=== PATIENT | male | born 1960 | race Caucasian/White ===

== ENCOUNTER 2024-07-09 10:03 | Day surgery (SDC) | payer OTHER, SELFPAY ==
[2024-07-09] VITALS (15 sets, daily range): BP systolic 101–136; BP diastolic 64–100; BMI 25.9
--- NOTE | 2024-07-09 10:49 | HP.FOC2 ---
Focused History & Physical
Chief Complaint
HPI:
PCP: Cuco Grimaldo MD
CDY: Anil Mcclain DO
Chief Complaint: Dilated Non Ischemic Cardiomyopathy, Class II HF symptoms
HPI / Indication for Planned Procedure:
64 y/o, PMH sig for dilated, non ischemic cardiomyopathy, chronic systolic HFrEF 24%, ETOH abuse, multiple lacunar infarcts.
On max tolerated GDMT with persistently low EF, with class II HF symptoms.
Presents for BI-V ICD Implant.
Relevant Past Medical History: Hypertension (labile BP) and Other (Anxiety/Depression, Gout, low testosterone)
Relevant Social History: ETOH (daily ETOH)
Review of Systems
Review of Pertinent Systems: All Systems Negative Except for the Following Positives (DONAHUE, palpitations, fatigue)
Medication
See Medication form for detailed medications: Yes
Medication List (including Herbals & OTC):
Home Medications
�Medication �Instructions �Recorded
allopurinol 100 mg tablet 150 mg PO DAILY Gout 07/09/24
aspirin 81 mg tablet 81 mg PO DAILY BLOOD THINNER 07/09/24
carvedilol 3.125 mg tablet 3.125 mg PO BID BP 07/09/24
formoterol fumarate 20 mcg/2 mL 20 mcg inhalation DAILY GERD 07/09/24
solution for nebulization
sertraline 50 mg tablet 50 mg PO DAILY 07/09/24
spironolactone 25 mg tablet 12.5 mg PO DAILY WATER 07/09/24
testosterone cypionate 50 mg/mL See Rx Instructions .Route 07/09/24
intramuscular oil .COMPLEX LOW HORMONE LEVEL
valsartan 80 mg capsule 80 mg PO DAILY BP 07/09/24
Medications Reviewed: Yes
Allergies and Reactions
Patient has Allergies: No
Noted Allergies and Reactions:
Allergy/AdvReac Type Severity Reaction Status Date / Time
No Known Allergies Allergy Unverified 07/08/24 16:09
Pertinent Physical Exam
All Other Systems: Negative
Head/Neck: Normal
Lungs: Other (decreased bibasilar with scattered rhonchi left base, clears with cough)
Heart: Normal
Abdomen: Normal
Extremities: Normal
Neurological: Normal
Diagnosis / Assessment
Dilated NICM
Chronic systolic HFrEF, 24%
Labile BP
Multiple lacunar infarcts
Anxiety/depression
Gout
Low testosterone
Plan / Procedure
NICM/chronic systolic HFrEF
Bi-V ICD today
continue gdmt as tolerated
cxr post procedure
incision check 1 week at [facility]
follow with Dr. Mcclain thereafter
Anesthesia/Sedation to be done by Anesthesia Provider: Yes
--- NOTE | 2024-07-09 10:57 | W.ICD.CONTRA ---
Post ICD/ASSOCIATE DIRECTOR FINANCE-D
-
History of ND?: No
LV Function
Left ventricular function study result?: Ejection Fraction </= 35%
ACEI/ARB/ARNI
Patient already on ACEI/ARB/ARNI: Yes
Beta-Rahul
Patient already on Beta Rahul: Yes
--- NOTE | 2024-07-09 14:54 | ITS.CL.ICD ---
Tipple Worker - ICD
Implantable Cardioverter Defibrillator
Procedure Report:
Date of Procedure: July 09, 2024
Patient : 1960
Procedures: BiV ICD implantation
Indication: 1) Class III CHF, LVEF 15%, 2) left bundle Branch Block, QRS 126-130 ms for [employer] and primary prevention ICD implantation on guideline based medical therapy greater than 3 months time without improvement of ejection fraction
�
Implants:
Pulse Generator: Showpitch; Model# CD HFA 500 Q; Serial# [id number]
Atrial Lead: Joiner: Model# 1944; Serial# [id number]
Right Ventricular Lead: Showpitch; Model# LDA 2 10Q; Serial# [id number]
Left Ventricular Lead: TrackMaven; Model# 4798 serial# [id number]
�
Technique: The patient was prepped and draped in the usual fashion. Local anesthetic was applied to the left prepectoral subcutaneous tissue. A 4 inch incision was made. The left axillary vein was accessed��without difficulty. A subcutaneous pocket
was CREATED. Hemostasis was excellent. The leads were introduced with hemostatic peel away introducer sheaths. The right ventricular lead was placed at the right ventricular apical septum. The atrial lead was placed in the right atrial appendage.
The coronary sinus was accessed with the aid of the Attain system. The left ventricular lead was placed in the high lateral branch with an active-fixation lead utilizing the distal and mid poles and LV only pacing. 10 volt pacing did not capture
the diaphragm. The leads were secured to the pectoralis muscle and fascia. The leads were appropriately attached to the device. The pocket was irrigated with antibiotic solution. The device and leads were placed in the pocket and the device was
secured to pectoralis muscle and facia. The incision was closed with absorbable sutures. The estimated blood loss was minimal. There were no complications. Device based testing was performed as described below. IV contrast total: 15 cc.
Fluoroscopy: 8.9 minutes of pulse fluoroscopy 78 mGy
System Analysis:
RA lead: P: 3.8 mV; Threshold: 0.75 V @ 0.5 ms; Impedance: 560 ohms.
RV lead: R: 6 mV; Threshold: 0.6 V @ 0.5 ms; Impedance: 540 ohms.
LV lead: R: 6 mV; Threshold: 2.0 V @ 0.5 ms and LV 1-2; Impedance: 590 ohms.
�
Final Programming: Tachy: VT/VF:188; Robinson: DDDR 60-120.
�
Conclusion: Uncomplicated Biventricular ICD implant
�
Recommendation: Routine post BiV ICD care.
�
cc: Dr. Adams Mcclain
�
--- NOTE | 2024-07-09 16:55 | CM ---
Reviewed chart. Mr. Moore was off the floor for a Chest Xray. Met with Mrs. Moore to review discharge plans. She states prior to admission he resides with his spouse and daughter in a two story home with three steps to enter. He has a first
floor set-up. Prior to admission he was independent with ambulation and adls. He does not have any DME in the home. He states he has a prescription plan and uses [facility]. The discharge plan is to return home with his spouse and daughter
when medically stable.
--- NOTE | 2024-07-09 17:20 | PTCARENOTE ---
Patient received from recovery at 1627; Surgical site assessed with stripe matcher, left upper chest aquacell clean/dry/intact, no ecchymosis noted, surrounding area soft to palpation, no hematoma noted; LUE immobilizer sling in place; Bilateral radial
pulses +2 to palpation; Bilateral DP pulses +2 to palpation; Normal sinus rhythm and periods of ventricular pacing noted on potline monitor; Patient 97-98% on room air; Denies pain, nausea, and vomiting at this time; Patient alert to self, place
and time; Call das within reach; Bed in lowest position, wheels locked; Assessment and plan of care ongoing
[2024-07-09] MEDS: ANCEF 5 IV (20:00)
[2024-07-09] MEDS: COREG 3.125 MG PO (20:00)
[2024-07-09] MEDS: TYLENOL 650 MG PO (21:14)
--- NOTE | 2024-07-09 23:14 | PTCARENOTE ---
Rec'd pt at change of shift. Pt AAO*3 and on TELE monitor in Vpaced rhythm. Pt with LOCO chest wall dressing CDI. Pt reported some discomfort at site. Tylenol given per order (see mar for full assessment details). Pt aware of LUE restrictions and
L arm immobilizer on. Pt educated on medications and verbalized understanding. Pt pointed to backpack on counter in room and explained 'all the medications I take are in there.' RN inventoried medications and sent down items to pharmacy per
protocol. Pt resting with call das in reach. Plan of care ongoing.
[2024-07-10] MEDS: ANCEF 5 IV (04:23)
[2024-07-10 04:27] VITALS: BP 123/81
[2024-07-10 04:48] VITALS: BMI 25.1
[2024-07-10 05:38] LABS: Hematocrit 36.3 % (39.0-52.0); Hemoglobin 12.1 g/dL (13.0-18.0); Mean Corp Hgb Conc. 33.3 g/dL (33.0-37.0); Mean Corpuscular Hgb 31.6 pg (27.0-31.0); Mean Corpuscular Volume 94.8 fL (80.0-94.0); Mean Platelet Volume 9.5 fL (7.4-10.4); Platelet Count 207 10^3/uL (130-400); Red Blood Cell Count 3.83 10^6/uL (4.70-6.10); Red Cell Dist. Width 11.9 % (11.5-14.5); White Blood Cell Count 9.8 10^3/uL (4.8-10.8)
[2024-07-10 05:58] LABS: Blood Urea Nitrogen 16 mg/dl (9-20); Calcium 9.3 mg/dl (8.4-10.2); Carbon Dioxide 20 mmol/L (22-30); Chloride 105 mmol/L (98-107); Estimated Creatinine Clearance 70 ml/min; Glucose 88 mg/dl (70-99); Magnesium 2.1 mg/dl (1.6-2.3); Potassium 4.6 mmol/L (3.5-5.1); Sodium 138 mmol/L (135-145); eGFR > 60.00
--- NOTE | 2024-07-10 07:13 | W.PN.CARDCBS ---
Addendum entered and electronically signed by Forest Reyna DO 07/10/24 10:08:
I saw and examined the patient.
The Continuous Improvement Lead's note was reviewed and I agree with the note.
Comment:
Plan:
Reviewed procedure with pt for ICD
Stable cv status.
Stable for d/c
Follow up arranged
Original Note:
Today's Communication / Plan
-
Ok for discharge
Follow up arranged
Impression / Plan
-
PCP: Dr. Grimaldo
Facility Rehab Director: Dr. Mcclain ([facility] Cardiology)
Impression:
Dilated NICM (EF 24%)
s/p Joiner BiV ICD 07/09/2024
HFrEF
h/o multiple lacunar infarcts
anxiety
Gout
Plan:
-He has known CM with EF 24% on maximally tolerated GDMT. Underwent BiV ICD 07/09/2024.
-No overnight issues noted. Does have some soreness over device site. No significant bruising or swelling.
-EKG this AM a sensed v paced. No arrhythmias noted on review of tele.
-Reviewed arm restrictions.
-BP stable, continue coreg 3.125 mg BID, spironolactone 12.5mg daily, and valsartan 80mg daily.
-Continue aspirin 81mg daily
-Wound check appt arranged at [facility] office.
-Follow up with Dr. Mcclain also arranged
-Ok for discharge
Progress Note - Facility Rehab Director
Subjective
Date of Service: July 10, 2024
No complaints this AM. Does have some soreness over device.
Objective
Labs:
07/10/24 04:35
07/10/24 04:35
Labs
Hgb 12.1 g/dL (13.0-18.0) L 07/10/24 04:35
Hct 36.3 % (39.0-52.0) L 07/10/24 04:35
Plt Count 207 10^3/uL (130-400) 07/10/24 04:35
Sodium 138 mmol/L (135-145) 07/10/24 04:35
Potassium 4.6 mmol/L (3.5-5.1) 07/10/24 04:35
BUN 16 mg/dl (9-20) 07/10/24 04:35
Creatinine 0.9 mg/dL (0.7-1.3) 07/10/24 04:35
Glucose 88 mg/dl (70-99) 07/10/24 04:35
Vital Signs and I&O:
Vital Signs
Temp Pulse Resp BP Pulse Ox
97.8 F 66 18 123/81 96
07/10/24 04:27 07/10/24 04:27 07/10/24 04:27 07/10/24 04:27 07/10/24 04:27
Vital Signs
Temp Pulse Resp BP Pulse Ox
97.8 F 66 18 123/81 96
07/10/24 04:27 07/10/24 04:27 07/10/24 04:27 07/10/24 04:27 07/10/24 04:27
Intake & Output
07/08/24 07/09/24 07/10/24 07/11/24
06:59 06:59 06:59 06:59
Intake Total 720 / 720
Balance 720 / 720
Physical Exam
Physical Exam
GEN: No distress, awake, alert, oriented x3
HEENT: supple, anicteric, mmm
LUNGS: CTA b/l, no wheezes/rales
CV: Reg, S1/S2, no murmur
EXT: No clubbing, cyanosis, or edema
NEURO: Gross non-focal
SKIN: No rash
--- NOTE | 2024-07-10 07:20 | W.DS.TRANS ---
DC Summary - Township Clerk
-
Discharge Instructions:
Discharge Diagnosis/Procedures BiV ICD implant
Diet Low Cholesterol,2 Gram Sodium
Driving Restrictions No driving for 1 week
Bathing Restrictions OK to Shower
Specialty Instructions Weigh Daily
Instructions:
Stand-Alone Forms: DC Inst - Implanted Device
Changes to Home Medications: No
Discharge Medications:
DC Medications w/original date entered in [employer]
allopurinol 100 mg tablet 150 mg PO DAILY Gout 07/09/24
aspirin 81 mg tablet 81 mg PO DAILY BLOOD THINNER 07/09/24
carvedilol 3.125 mg tablet 3.125 mg PO BID Heart Failure 07/09/24
formoterol fumarate 20 mcg/2 mL solution for nebulization 20 mcg inhalation DAILY Lung/Breathing Issues 07/09/24
sertraline 50 mg tablet 50 mg PO DAILY Depression 07/09/24
spironolactone 25 mg tablet 12.5 mg PO DAILY Heart Failure 07/09/24
testosterone cypionate 50 mg/mL intramuscular oil See Rx Instructions .Route .COMPLEX LOW HORMONE LEVEL 07/09/24
valsartan 80 mg capsule 80 mg PO DAILY Heart Failure 07/09/24
Home Medication Changes
Pending Results: No
[2024-07-10 07:50] VITALS: BP 125/79
[2024-07-10] MEDS: ZYLOPRIM 150 MG PO (10:10)
[2024-07-10] MEDS: LOW STRENGTH ASPIRIN 81 MG PO (10:10)
[2024-07-10] MEDS: COREG 3.125 MG PO (10:11)
== END 2024-07-10 11:57 | disposition home or self-care (01) ==
LOC: CATH 10:03
PROVIDERS: Nurse Practitioner Adult Health; ATTENDING PHYSICIAN Internal Medicine Cardiovascular Disease; FAMILY PHYSICIAN Internal Medicine; OTHER PHYSICIAN Internal Medicine Cardiovascular Disease
DX: I11.0 Hypertensive heart disease with heart failure (principal); I50.22 Chronic systolic (congestive) heart failure; I42.0 Dilated cardiomyopathy; I44.7 Left bundle-branch block, unspecified; F32.A Depression, unspecified; F41.9 Anxiety disorder, unspecified; M10.9 Gout, unspecified; Z79.82 Long term (current) use of aspirin
CPT/HCPCS: 33249; 33225; C1769; C1892; C1730; 71045; 80048; 83735; 85027; 86850; 86900; 86901; 93005; C1882; C1895; C1898; C1900; Q9967